=== PATIENT | female | born 2000 | race Caucasian/White ===

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

== ENCOUNTER 2022-01-11 18:58 | Emergency (ER) | payer OTHER ==
[~2022-01-11] VITALS: Ht 162.6 cm; Wt 74.0 kg
[2022-01-11 19:57] VITALS: BP 117/89
== END 2022-01-12 00:52 | disposition left against medical advice (07) ==
LOC: ER 18:58
DX: L02.91 Cutaneous abscess, unspecified (principal); Z53.21 Procedure and treatment not carried out due to patient leaving prior to being seen by health care provider